=== PATIENT | female | born 1955 | race Caucasian/White ===

== ENCOUNTER → 2017-02-04 | Outpatient (CLI) | payer BC ==
[2017-02-04 10:47] LABS: BUN 16 mg/dL (7-18); GFR (ESTIMATED) 72 ML/MIN (59-)
--- NOTE | 2017-02-04 16:12 | RADIOLOGY REPORT PS360 ---
US THYROID HISTORY: POSSIBLE RT PARATRACHEAL MASS ORDERING PHYSICIAN: Peña Doss MD PATIENT AGE: 62 years COMPARISON: None FINDINGS: Right lobe is 4.2 x 1.3 x 1.8 cm. There is a 15 mm mixed mostly hypoechoic nodule involving the lower pole of the right lobe of the thyroid gland. Left lobe is 3 x 1 x 1.6 cm and has an unremarkable appearance. The isthmus is unremarkable. IMPRESSION: Indeterminate 15 mm hypoechoic nodule involving the lower pole on the right. Consider fine-needle aspiration with sonographic guidance for further evaluation
--- NOTE | 2017-02-05 05:55 | RADIOLOGY REPORT PS360 ---
CT CHEST W/WO CONTRAST HISTORY: Paratracheal mass seen on recent barium swallow ABNL,TROUBLE SWALLOWING,NAUSEA,HH ORDERING PHYSICIAN: Pñea Doss MD PATIENT AGE: 62 years TECHNIQUE: Helical acquisition obtained following the intravenous administration of 75 mL of Isovue 370 .. Axial, sagittal, and coronal reformatted images are generated and reviewed. COMPARISON: None FINDINGS: There is a 12 mm isodensity along the lower pole of the right lobe of the thyroid gland consistent with a thyroid nodule. Coronary calcifications are noted. No mediastinal or hilar mass or adenopathy. No pericardial effusion. There are atelectatic changes in the right lung base. A 6 mm subpleural nodule is Present in the right lung base posterolaterally noncalcified. Calcified granuloma noted in the right lung base medially. 4 mm noncalcified nodule right middle lobe no lobar consolidation or collapse. No suspicious pulmonary nodules. Mild change changes of the thoracic spine Upper abdominal images show several isodense lesions of the liver the largest in the hepatic dome centrally and anteriorly measuring 3 cm likely related to hepatic cysts. There has been prior cholecystectomy. IMPRESSION: 1. 12 mm hypodense nodule the right lobe of the thyroid gland corresponding to the nodule seen on the ultrasound of the same day. Please see that report for further description and recommendations. 2. Coronary artery disease. 3. 6 mm subpleural nodular opacity right lung base posterolaterally. Consider 6 month follow-up
== END ==
LOC: RAD 09:59
PROVIDERS: Internal Medicine
DX: R93.3 Abnormal findings on diagnostic imaging of other parts of digestive tract (principal); R11.0 Nausea
CPT/HCPCS: Q9967